=== PATIENT | male | born 1980 | race Two or more races ===

== ENCOUNTER 2016-05-14 17:24 | Observation (INO) | payer BC ==
--- NOTE | ~2016-05-14 | CR72 ---
[facility] A Service of [facility] RADIOLOGY TEXT RESULTS PATIENT: BRIAN COLON LOCATION: [facility] 323-01 : [birth year] UNIT #: [id number] AGE: [address]: Estella Gray MD SEX: M ORDER DR: [id number] [facility] [address] [place], [place] [address] [id number] I MR#: [id number] Acc #: [id number] NAME: BRIAN COLON : 1980 SEX: M STUDY DATE/TIME: 05/14/2016 17:55 UNIT: [address] ROOM: 323 STUDY DESCRIPTION: CR Chest Single View Portable Attending Physician: Estella Gray M.D. Ordering Physician: Mildred Cabrera M.D. Primary Care Physician: Harrison Gonzalez MEDICAL IMAGING REPORT This report is preliminary unless electronic signature is present EXAM Portable chest, 05/14/2016 HISTORY Dizziness and chest pain beginning 1 day ago. Benign essential hypertension. FINDINGS A single AP portable view of the chest shows both lungs to be clear. The heart is normal in size. The mediastinal contour is normal. No significant bone abnormalities are seen. IMPRESSION Normal portable chest. Dictated by... Demond Cisneros M.D. THIS IS AN ELECTRONICALLY VERIFIED REPORT Demond Cisneros M.D. at 05/15/2016 8:23 AM DUSTIN/arleen TD: 05/14/2016 23:47 JOB #: [id number] MEDICAL IMAGING REPORT Page 1 of 1 COPY
--- NOTE | ~2016-05-14 | EKG ---
PATIENT: BRIAN COLON UNIT #: [id number] Ventricular Rate: 85 BPM Atrial Rate: 85 BPM P-R Interval: 160 ms QRS Duration: 82 ms Q-T Interval: 336 ms QTC Calculation(Bezet): 399 ms P [place]: 48 degrees Calculated R [place]: 75 degrees Calculated T [place]: 9 degrees Diagnosis Line: Normal sinus rhythm Diagnosis Line: Normal ECG Diagnosis Line: No previous ECGs available Diagnosis Line: Confirmed by AMARILIS PORTILLO MD ([id number]) on 05/15/2016 Diagnosis Line: 9:18:49 PM INTERPRETING MD: BANDAR NIELSON
--- NOTE | ~2016-05-14 | EKG ---
PATIENT: BRIAN COLON UNIT #: [id number] Ventricular Rate: 75 BPM Atrial Rate: 75 BPM P-R Interval: 164 ms QRS Duration: 82 ms Q-T Interval: 368 ms QTC Calculation(Bezet): 410 ms P [place]: 47 degrees Calculated R [place]: 69 degrees Calculated T [place]: 13 degrees Diagnosis Line: Normal sinus rhythm Diagnosis Line: Normal ECG Diagnosis Line: When compared with ECG of 14-MAY-2016 17:38, Diagnosis Line: (unconfirmed) Diagnosis Line: No significant change was found Diagnosis Line: Confirmed by AMARILIS PORTILLO MD ([id number]) on 05/15/2016 Diagnosis Line: 9:23:22 PM INTERPRETING MD: BANDAR NIELSON
--- NOTE | ~2016-05-14 | TH ---
Unit #: [id number] #: [id number] Patient: BRIAN COLON [id number] [address] [address] [id number] I MR#: [id number] NAME: BRIAN COLON : 1980 SEX: M STUDY DATE/TIME: 05/15/2016 UNIT: C3A PCU ROOM: 323 STUDY DESCRIPTION: Nuclear stress and ECG Attending Physician: Estella Gray M.D. Primary Care Physician: Harrison Ricci M.D. CARDIOLOGY REPORT Result text under stress portion. Please see this order for result text. Dictated by... Gilberto Hardy M.D. PJGrant/ts TD: 05/16/2016 07:55 JOB #: [id number] CARDIOLOGY REPORT Page 1 of 1 X Gilberto Hardy MD CARDIOLOGY REPORT
--- NOTE | ~2016-05-14 | HP ---
Unit #: [id number] #: [id number] Patient: BRIAN COLON [id number] [address] [place], [place] [address] [id number] I MR#: [id number] NAME: BRIAN COLON ROOM: 323 Age: 35 Sex: M Admission Date: 05/14/2016 : 1980 Attending Physician: Estella Gray M.D. Primary Care Physician: Harrison Ricci M.D. HISTORY AND PHYSICAL CHIEF COMPLAINT Near syncope, hypertension, headache, chest pain. HISTORY OF PRESENT ILLNESS Mr. Colon is a 35-year-old male with past medical history of hypertension, type 2 diabetes, dyslipidemia who on Friday stated that his blood pressure was in the 160s over one teens. He started feeling badly. His blood pressure continued to be elevated on Friday. He states that when he gets this high blood pressure he feels lightheaded, dizzy, and like he is going to pass out with near syncope. It gives him a headache. He also says starting on Friday he was having his mid sternal chest discomfort that has been constant since his blood pressure has been elevated. No nausea. No vomiting. No diaphoresis. No shortness of air. He has been taking his medications as prescribed but they were not working. PAST MEDICAL HISTORY 1. Hypertension. 2. Type 2 diabetes. 3. Dyslipidemia. SOCIAL HISTORY Positive tobacco, half pack per day since the age of 23. Rare occasional alcohol. Denies illicit drug use. FAMILY HISTORY Mother and brother both with diabetes. No one with premature atherosclerotic heart disease. No one with high blood pressure. HOME MEDICATIONS 1. Lexapro 20 mg daily. 2. Betamethasone ointment twice daily. 3. Naproxen 550 mg three times daily as needed for pain. 4. Glucophage 850 mg daily. 5. WelChol three tabs twice daily. 6. Cozaar 25 mg daily. ALLERGIES No known allergies. REVIEW OF SYSTEMS Negative fevers. Negative chills. No sinusitis. No bronchitis. No difficulty swallowing. No cough. No shortness of air. No orthopnea. No paroxysmal nocturnal dyspnea. (1) did feel his heart racing at times with his high blood pressure and constant chest discomfort since Unit #: [id number] #: [id number] Patient: BRIAN COLON Friday. No diarrhea. No constipation. No bright red bleeding per rectum. No hematochezia. No dysuria. No hematuria. No gait disturbance. Positive anxiety, depression. PHYSICAL EXAMINATION GENERAL: Well-developed, well-nourished, , white male awake, alert, oriented x3. HEENT: Normocephalic and atraumatic. No xanthelasma. Pupils equal, round, reactive to light. Extraocular movements intact. NECK: Supple. No jugular venous distention. No elevated CVP. CORE: S1, S2. No S3, S4. No murmurs, rubs, gallops. PMI nondisplaced. No lift. ABDOMEN: Obese. Positive bowel sounds. Soft, nontender, nondistended. No clubbing, cyanosis, or edema. EXTREMITIES: Two plus pulses bilaterally all schmidt. VITAL SIGNS: Temperature 97.9, heart rate 87 normal sinus rhythm, respirations 18, current blood pressure 123/78 (admission blood pressure 156/100). Height 5 feet 11 inches, weight 122 kg, BMI 37. DIAGNOSTIC STUDIES LABORATORY: Chemistry: Sodium 139, potassium 3.7, chloride 106, CO2 of 21, BUN 15, creatinine 0.8, glucose 135. AST 27, ALT 52, total protein 4.3, albumin 4.3. Troponin less than 0.03. Repeat troponin less than 0.03. Point of care troponin was less than 0.05 and less than 0.05. PT 9.9, INR 0.9, PTT 24.2. D-dimer 219. Point of care glucose was 257. CBC: Hemoglobin 17, hematocrit 50.5, red blood cell count 5.81, white blood cell count 12.5, platelets 306,000. IMAGING: Chest x-ray: Normal chest. ASSESSMENT AND PLAN 1. Uncontrolled hypertension: We will increase his Cozaar to 50 mg twice daily, add chlorthalidone 12.5 mg daily. 2. Atypical chest discomfort: The patient reports stress test one year ago at [facility] that was reported as normal, negative troponin x4. We will obtain a plain treadmill stress test. 3. Diabetes with poor control. 4. Dyslipidemia on WelChol. We will add TSH, hemoglobin A1c, and lipid profile to the blood in the lab. Dr. Hardy to follow for any further recommendations. Dictated by Anna Marie Bell A.P.R.N. for Gilberto Hardy M.D. MICHAEL/marianne TD: 05/15/2016 10:44 JOB #: [id number] Unit #: [id number] #: [id number] Patient: DARLENEBRIAN HISTORY AND PHYSICAL Page 1 of 1 X X HISTORY AND PHYSICAL
--- NOTE | ~2016-05-14 | ST ---
Unit #: [id number] #: [id number] Patient: BRIAN COLON [id number] [address] [place], [place] [address] [id number] I MR#: [id number] NAME: BRIAN COLON : 1980 SEX: M STUDY DATE/TIME: 05/15/2016 UNIT: C3A PCU ROOM: 323 STUDY DESCRIPTION: Stress nuclear and ECG Attending Physician: Estella Gray M.D. Primary Care Physician: Harrison Ricci M.D. CARDIOLOGY REPORT EXAM Stress nuclear and ECG. INDICATION Chest pain. SUMMARY The patient exercised under Glen protocol to maximal effort. Technetium 99 Cardiolite 10.57 and 30.8 mCi was injected at rest and stress respectively. Appropriate views were obtained. FINDINGS Resting ECG shows no diagnostic ST shifts. With stress there were no diagnostic ST shifts, no dysrhythmias, and no heart block. The heart rate increased from 100 to 176 (95%) and blood pressure increased 128/78 to 160/84. There was no chest pain noted. Perfusion images demonstrate intestinal artifact at rest with apical thinning at rest, with otherwise normal perfusion at rest and stress. RV appears upper limits of normal to mildly enlarged in size. Echo would be needed to confirm this. End-diastolic volume is 102 mL, ejection fraction is 56%. There was mild hypokinesis of the anterolateral wall. There was no significant patient motion either at rest or stress. There is no significant lung uptake, LV or RV enlargement. Summed stress score is 8, summed difference score is 8. Changes involve primarily the inferoseptal wall and [facility] This is not confirmed on the SPECT images. IMPRESSION 1. Myocardial perfusion scan shows no ischemia or infarction. 2. Low normal ejection fraction, with otherwise normal wall motion. 3. Patient may be discharged. Dictated by... Gilberto Hardy M.D. THANH/ricci TD: 05/16/2016 07:45 JOB #: [id number] Unit #: [id number] #: [id number] Patient: BRIAN COLON CARDIOLOGY REPORT Page 1 of 1 X Gilberto Hardy MD CARDIOLOGY REPORT
[~2016-05-14 17:24] MED LIST: ?BP MED; MEDROL DOSEPAK4 MG PO; MOTRIN600 M2 PO
[2016-05-14 17:57] LABS: INR 0.9; PARTIAL THROMBOPLASTIN TIME 24.2 SECONDS (23.5-31.3); PROTHROMBIN TIME (PATIENT) 9.9 SECONDS (9.6-11.5)
[2016-05-14 17:59] LABS: BASOPHIL% 0.4 % (0-2.5); EOSINOPHIL# 0.6 X10e3 (0-0.7); EOSINOPHIL% 4.6 % (0.0-7.0); HEMATOCRIT 50.5 % (38.0-50.0); LYMPHOCYTE# 2.9 X10e3 (1.0-3.5); LYMPHOCYTE% 23.5 % (17.0-45.0); MEAN CORPUSCULAR HEMOGLOBIN 29.2 PG (28-34); MEAN CORPUSCULAR HGB CONC 33.6 g/dL (30-36); MEAN PLATELET VOLUME 7.5 FL (6.5-11.5); MONOCYTE# 0.7 X10e3 (0-1.0); MONOCYTE% 5.4 % (3.0-12.0); NEUTROPHIL# 8.3 X10e3 (1.5-7.1); NEUTROPHIL% 66.1 % (40-75); PLATELET COUNT 306 X10e3 (140-420); RED BLOOD COUNT 5.81 X10e (3.90-5.60); RED CELL DISTRIBUTION WIDTH 13.1 % (11.0-15.5); WHITE BLOOD COUNT 12.5 X10e3 (4.0-10.5)
[2016-05-14 18:01] LABS: POC - TROPONIN <0.05 ng/mL (<=0.05)
[2016-05-14 18:03] LABS: DIFF IND NO
[2016-05-14 18:12] LABS: ALBUMIN SERUM 4.3 g/dL (3.5-5.0); BILIRUBIN, DIRECT 0.1 mg/dL (0.0-0.2); BILIRUBIN,INDIRECT 0.3 mg/dL (0.0-0.9); BILIRUBIN,TOTAL 0.4 mg/dL (0.2-2.0); BUN/CREATININE RATIO 18.75; CALCIUM SERUM 9.5 mg/dL (8.4-10.2); CREATININE SERUM 0.8 mg/dL (0.6-1.4); GLOM FILT RATE Estimated 117.4 mL/min (>60); POTASSIUM 3.7 mmol/L (3.5-5.1); PROTEIN TOTAL SERUM 7.6 g/dL (6.0-8.3)
[2016-05-14 18:50] LABS: POC - CKMB 2.1 ng/mL (0.0-7.9); POC - TROPONIN <0.05 ng/mL (<=0.05)
[2016-05-14] MEDS ORDERED: LEXAPRO20 MG PO (20:14)
[2016-05-14] MEDS ORDERED: BETAMETHASONE D15 G5 TOP (20:14)
[2016-05-14] MEDS ORDERED: WELCHOL625 M1 PO (20:15)
[2016-05-14] MEDS ORDERED: NAPROXEN PO (20:15)
[2016-05-14] MEDS ORDERED: GLUCOPHAGE850 MG PO (20:15)
[2016-05-14] MEDS ORDERED: COZAAR25 MG PO (20:16)
[2016-05-15 01:39] LABS: %MB 2.8 % (0.0-4.0); MB 2.8 ng/ml
[2016-05-15 07:55] LABS: %MB 2.9 % (0.0-4.0); MB 2.8 ng/ml
[2016-05-15 12:39] LABS: CHOLESTEROL 205 mg/dL (0-200); HDL CHOLESTEROL 38 mg/dL (29-75); LDL CHOLESTEROL 130 mg/dL (-130); LDL/HDL RATIO 3 RATIO (0-4); TRIGLYCERIDES 187 mg/dL (10-160)
[2016-05-15] MEDS ORDERED: COZAAR PO (18:33)
[2016-05-15] MEDS ORDERED: CHLORTHALIDONE25 MG PO (18:34)
== END 2016-05-15 23:01 | disposition home or self-care (01) | DRG 305 ==
LOC: CED 17:24 → CEDOF 19:55 → C3A PCU 22:51
PROVIDERS: Emergency Medicine; Internal Medicine Cardiovascular Disease
DX: I10 Essential (primary) hypertension (principal); R07.89 Other chest pain; I51.7 Cardiomegaly; I50.30 Unspecified diastolic (congestive) heart failure; E11.65 Type 2 diabetes mellitus with hyperglycemia; Z79.84 Long term (current) use of oral hypoglycemic drugs; E78.5 Hyperlipidemia, unspecified; Z79.899 Other long term (current) drug therapy; F17.200 Nicotine dependence, unspecified, uncomplicated; Z83.3 Family history of diabetes mellitus
CPT/HCPCS: 36415; 71010; 78452; 80048; 80061; 80076; 82550; 82553; 82947; 83036; 84443; 84484; 85025; 85379; 85610; 85730; 93005; 93017; 93306; 96360; 99285; A9500; G0378; J1815

== ENCOUNTER 2016-08-06 21:55 | Emergency (ER) | payer BC ==
--- NOTE | ~2016-08-06 | CT4 ---
[facility] A Service of [facility] RADIOLOGY TEXT RESULTS PATIENT: BRIAN COLON LOCATION: [facility] : [birth year] UNIT #: [id number] AGE: [address]: Mildred Cabrera MD SEX: M ORDER DR: [id number] [facility] [address] [place], [place] [address] [id number] E MR#: [id number] Acc #: [id number] NAME: BRIAN COLON : 1980 SEX: M STUDY DATE/TIME: 08/07/2016 01:07 UNIT: [facility] ROOM: STUDY DESCRIPTION: CT Abd and Pelv Wo Cont Attending Physician: Mildred Cabrera M.D. Ordering Physician: Mildred Cabrera M.D. Primary Care Physician: Harrison Ricci M.D. MEDICAL IMAGING REPORT This report is preliminary unless electronic signature is present EXAM Abdomen and pelvis CT 08/07 at 01:07. INDICATIONS Abdominal pain that started last Friday with associated nausea. TECHNIQUE Axial noncontrast images were obtained through the abdomen and pelvis. Multiplanar reformats were obtained. This CT exam was performed with one or more of the following radiation dose reduction techniques: Automatic exposure control, adjustment of mA and/or kV according to patient size, and iterative reconstruction. COMPARISON Comparison made with 12/05/14. FINDINGS Abdomen: There is elevation of the right hemidiaphragm with mild right base atelectasis. Gallbladder is contracted. No renal or ureteral stones are seen. There is no hydronephrosis. The unenhanced solid organs are within normal limits. No free fluid or adenopathy. Unopacified GI tract is normal. Pelvis: There are no lower ureteral stones. Urinary bladder is normal. There is abnormal fat stranding in the anterior mid pelvis. This is likely secondary to mild acute sigmoid diverticulitis. The remainder of the GI tract, including the appendix is normal. IMPRESSION 1. No renal or ureteral stones. No hydronephrosis. 2. Fat stranding in the pelvis abutting the sigmoid colon likely [facility] A Service of [facility] RADIOLOGY TEXT RESULTS PATIENT: BRIAN COLON LOCATION: [facility] : [birth year] UNIT #: [id number] AGE: [address]: Mildred Cabrera MD SEX: M ORDER DR: reflects mild acute sigmoid diverticulitis. No abscess is identified. The remainder of the GI tract, including the appendix, is normal. Dictated by... Will Camargo Jr., M.D. THIS IS AN ELECTRONICALLY VERIFIED REPORT Will Camargo Jr., M.D. at 08/07/2016 9:52 PM ZENA/dave TD: 08/07/2016 08:14 JOB #: [id number] MEDICAL IMAGING REPORT Page 1 of 1 COPY
[~2016-08-06 21:55] MED LIST changes: +BETAMETHASONE D15 G5 TOP; +CHLORTHALIDONE25 MG PO; +COZAAR PO; +COZAAR25 MG PO; +GLUCOPHAGE850 MG PO; +LEXAPRO20 MG PO; +NAPROXEN PO; +WELCHOL625 M1 PO
[2016-08-07 00:29] LABS: BASOPHIL# 0.1 X10e3 (0-0.3); BASOPHIL% 0.6 % (0-2.5); EOSINOPHIL# 0.6 X10e3 (0-0.7); EOSINOPHIL% 4.9 % (0.0-7.0); HEMATOCRIT 47.1 % (38.0-50.0); LYMPHOCYTE# 4.1 X10e3 (1.0-3.5); MEAN CELL VOLUME 86.7 FL (83-96); MEAN CORPUSCULAR HEMOGLOBIN 29.5 PG (28-34); MEAN PLATELET VOLUME 7.5 FL (6.5-11.5); MONOCYTE# 0.8 X10e3 (0-1.0); MONOCYTE% 6.1 % (3.0-12.0); NEUTROPHIL# 7.6 X10e3 (1.5-7.1); NEUTROPHIL% 57.4 % (40-75); PLATELET COUNT 271 X10e3 (140-420); RED BLOOD COUNT 5.43 X10e (3.90-5.60); RED CELL DISTRIBUTION WIDTH 13.1 % (11.0-15.5); WHITE BLOOD COUNT 13.3 X10e3 (4.0-10.5)
[2016-08-07 00:30] LABS: DIFF IND NO
[2016-08-07 00:45] LABS: URINE SOURCE CLEAN CATCH
[2016-08-07 00:51] LABS: URINE APPEARANCE CLEAR; URINE BILIRUBIN NEG (NEG); URINE BLOOD TRACE (NEG); URINE COLOR YELLOW; URINE GLUCOSE >1000 MG/DL (NEG); URINE KETONE NEG (NEG); URINE LEUKOCYTE ESTERASE NEG (NEG); URINE NITRATE NEG (NEG); URINE PH 5.5 (5-8); URINE PROTEIN NEG (NEG); URINE SPECIFIC GRAVITY 1.027 (1.003-1.035); URINE UROBILINOGEN 0.2 MG/DL (NEG)
[2016-08-07 00:53] LABS: URINE BACTERIA AUWI NEG (NEGATIVE); URINE SQUAMOUS EPITHELIAL CELL NONE SEEN /[HPF]; UWBCS1 AUWI 0-2 (0-5)
[2016-08-07 00:58] LABS: CULTURE INDICATED? NO
[2016-08-07 01:00] LABS: BILIRUBIN, DIRECT 0.1 mg/dL (0.0-0.2); BILIRUBIN,INDIRECT 0.1 mg/dL (0.0-0.9); BILIRUBIN,TOTAL 0.2 mg/dL (0.2-2.0); BUN/CREATININE RATIO 18.57; CALCIUM SERUM 8.6 mg/dL (8.4-10.2); CREATININE SERUM 0.7 mg/dL (0.6-1.4); GLOM FILT RATE Estimated 123.2 mL/min (>60); POTASSIUM 3.3 mmol/L (3.5-5.1); PROTEIN TOTAL SERUM 7.4 g/dL (6.0-8.3)
== END 2016-08-07 02:15 | disposition home or self-care (01) ==
LOC: CED 21:55
PROVIDERS: Emergency Medicine
DX: K57.92 Diverticulitis of intestine, part unspecified, without perforation or abscess without bleeding (principal); I10 Essential (primary) hypertension; E11.9 Type 2 diabetes mellitus without complications; F17.210 Nicotine dependence, cigarettes, uncomplicated; Z79.899 Other long term (current) drug therapy; Z79.84 Long term (current) use of oral hypoglycemic drugs
CPT/HCPCS: 74176; 80048; 80076; 81003; 82150; 83690; 85025; 96361; 96374; 96375; 99284